=== PATIENT | male | born 1950 | race Caucasian/White ===

== ENCOUNTER → 2019-02-19 | Outpatient (CLI) | payer OTHER ==
[~2019-02-19] MED LIST: ALLOPURINOL300 MG PO; GEMFIBROZIL600 MG PO; LIPITOR20 MG PO
[2019-02-19 11:10] LABS: BASO % 0.4 % (0.0-1.0); EOS # 0.3 10*3/uL (0.0-0.4); EOS % 4.1 % (1.0-4.0); HEMOGLOBIN 14.3 g/dl (14.0-18.0); LYMPH # 2.5 10*3/uL (1.3-4.4); LYMPH % 29.6 % (27.0-41.0); MEAN CELL VOLUME 91.8 fl (80.0-94.0); MEAN CORPUSCULAR HGB 29.2 pg (27.0-31.0); MEAN CORPUSCULAR HGB CONC 31.8 g/dl (33.0-37.0); MEAN PLATELET VOLUME 9.7 fl (9.6-12.3); MONO # 0.5 10*3/uL (0.1-1.0); MONO % 5.8 % (3.0-9.0); NEUT % 59.9 % (47.0-73.0); PLATELET COUNT AUTOMATED 204 10*3/uL (130-400); RED CELL DISTRI WIDTH 13.5 % (0-14.5); WHITE BLOOD COUNT 8.4 10*3/uL (4.8-10.8)
[2019-02-19 11:41] LABS: ALBUMIN 3.9 gm/dl (3.1-4.5); BUN 12 mg/dl (7-24); CHLORIDE 106 mmol/L (98-107); SODIUM 139 mmol/L (136-145)
[2019-02-19 11:48] LABS: ALKALINE PHOSPHATASE 95 U/L (45-117); CHOLESTEROL 212 mg/dL (<200); FREE T4 1.01 ng/dl (0.76-1.46); HDL CHOLESTEROL 49 mg/dl (40-60); LDL CHOLESTEROL 103 mg/dL (9-159); SGOT/AST 17 IU/L (3-35); SGPT/ALT 30 U/L (12-78); TOTAL PROTEIN 7.3 gm/dL (6.4-8.2); TRIGLYCERIDES 298 mg/dl (<150); VLDL CHOLESTEROL 60 mg/dL (6-40)
[2019-02-19 12:11] LABS: VITAMIN D, 25-HYDROXY 40.5 ng/mL (30-100)
== END | disposition home or self-care (01) ==
LOC: LAB 10:47
PROVIDERS: Internal Medicine
DX: Z13.21 Encounter for screening for nutritional disorder (principal); M19.012 Primary osteoarthritis, left shoulder; Z13.1 Encounter for screening for diabetes mellitus; E55.9 Vitamin D deficiency, unspecified; E78.2 Mixed hyperlipidemia

== ENCOUNTER 2019-08-19 10:55 | Inpatient (IN) | payer MEDICARE ==
[~2019-08-19] VITALS: Ht 165.1 cm; Wt 79.2 kg
--- NOTE | 2019-08-19 11:33 | NUR ---
[facility] , under the services of JADIEL Bates MD with a diagnosis of RESP. FAILURE. Chief complaint is SOB. Patient arrived via wheel chair from ID. Monitor applied. Initial assessment completed. Vital signs taken and recorded. JADIEL BATES MD notified of admission to the unit. Orders received. See assessment for past medical history, medications and allergies. Patient and/or family oriented to unit. [facility] visitation policy reviewed. Clothing/patient valuable form completed. DEANNA HOWARD
[2019-08-19 12:00] VITALS: BP 131/71
[2019-08-19 12:07] LABS: BASO % 0.6 % (0.0-1.0); EOS # 0.1 10*3/uL (0.0-0.4); HEMATOCRIT 44.2 % (42.0-52.0); HEMOGLOBIN 14.3 g/dl (14.0-18.0); LYMPH # 1.7 10*3/uL (1.3-4.4); LYMPH % 23.7 % (27.0-41.0); MEAN CELL VOLUME 91.5 fl (80.0-94.0); MEAN CORPUSCULAR HGB 29.6 pg (27.0-31.0); MEAN CORPUSCULAR HGB CONC 32.4 g/dl (33.0-37.0); MEAN PLATELET VOLUME 9.7 fl (9.6-12.3); MONO # 0.8 10*3/uL (0.1-1.0); NEUT # 4.4 10*3/uL (2.3-7.9); NEUT % 62.4 % (47.0-73.0); PLATELET COUNT AUTOMATED 185 10*3/uL (130-400); RED BLOOD COUNT 4.83 10*6/uL (4.50-5.90); RED CELL DISTRI WIDTH 13.3 % (0-14.5)
[2019-08-19 12:18] LABS: BUN 12 mg/dl (7-24); CHLORIDE 101 mmol/L (98-107); CREATININE 0.88 mg/dL (0.70-1.30); SODIUM 134 mmol/L (136-145)
[2019-08-19 16:00] VITALS: BP 124/62
--- NOTE | 2019-08-19 19:00 | NUR ---
ASSUMED CARE FOR THIS PT AT THIS TIME. NO C/O VOICED. BLOOD TINGED SPUTUM NOTED. CALL LIGHT IN REACH.
[2019-08-19 20:00] VITALS: BP 126/77
--- NOTE | 2019-08-19 22:52 | NUR ---
24 HR chart check completed.
[2019-08-20] VITALS: BP 112/66
--- NOTE | 2019-08-20 07:38 | NUR ---
24 HR chart check completed.
[2019-08-20 08:00] VITALS: BP 120/70; BP 132/73
--- NOTE | 2019-08-20 08:00 | NUR ---
Patient resting quietly with no c/o discomfort. Respirations easy and regular. Vital signs stable. No overt distress. RASHARD QUIROZ
--- NOTE | 2019-08-20 11:06 | NUR ---
Ophthalmologist Retina Specialist in to talk to patient. Patient states lives at home with his and granddaughter. There are basement steps in the home. Physician: Dr. Teena Petersen Pharmacy: [facility] in [place] Home health services: none Patient's level of ADLs: INDEPENDENT Patient has working utilities: yes DME: none Follow-up physician's appointment after d/c: he prefers to make his own follow up appt after discharge Does patient want to access PORTAL?: no Discharge plan discussed with patient. He lives at home with his and granddaughter. He is independent in his ADLs and ambulation. Discussed home health care services and he denies any home needs at this time. When medically stable he will be discharged to home. He states his will provide transportation on discharge. KEKE FLEMING
[2019-08-20 12:00] VITALS: BP 142/66
[2019-08-20 16:00] VITALS: BP 152/68
[2019-08-20 20:00] VITALS: BP 136/69
--- NOTE | 2019-08-20 20:18 | NUR ---
RESTING IN BED WITH HOB ELEVATED. ALERT AND PLEASANT. HEP LOCK INTACT. NO DISTRESS NOTED. SPUTUM CONT AT BEDSIDE.
[2019-08-21] VITALS: BP 130/75
--- NOTE | 2019-08-21 00:19 | NUR ---
RESTING IN BED WITH EYES CLOSED. 02 INTACT. PULSE OX 90-93% ON 2L. MOIST COUGH CONT.
--- NOTE | 2019-08-21 06:11 | NUR ---
SLEPT WELL THIS SHIFT. NO DISTRESS NOTED. CONDITION GUARDED.
[2019-08-21 08:00] VITALS: BP 148/84
--- NOTE | 2019-08-21 08:00 | NUR ---
Patient resting quietly with no c/o discomfort. Respirations easy and regular. Vital signs stable. No overt distress. RASHARD QUIROZ
--- NOTE | 2019-08-21 08:29 | NUR ---
DR PEÑA NOTIFIED OF CONSULT. POSSIBLE BRONCH IN AM.
--- NOTE | 2019-08-21 08:30 | NUR ---
[place] Pilot in to see patient. No new needs or request at this time. He denies any home needs. When medically stable he will be discharged to home.
[2019-08-21 12:00] VITALS: BP 133/74
[2019-08-21 16:00] VITALS: BP 124/88
--- NOTE | 2019-08-21 16:00 | NUR ---
Patient resting quietly with no c/o discomfort. Respirations easy and regular. Vital signs stable. No overt distress. RASHARD QUIROZ
[2019-08-21 20:00] VITALS: BP 152/74
[2019-08-22] VITALS: BP 136/78
--- NOTE | 2019-08-22 00:12 | NUR ---
PATIENT'S IV NOT WORKING. DISCONTINUED AND RESTARTED IN THE RIGHT HAND BY RN DEE JON. 22 GAUGE, HEP LOCKED, FLUSHED WITH NSS. PATIENT TOLERATED WELL.
[2019-08-22 06:58] LABS: BASO % 0.1 % (0.0-1.0); EOS # 0.2 10*3/uL (0.0-0.4); EOS % 1.7 % (1.0-4.0); HEMATOCRIT 44.6 % (42.0-52.0); HEMOGLOBIN 14.2 g/dl (14.0-18.0); LYMPH # 1.9 10*3/uL (1.3-4.4); LYMPH % 18.5 % (27.0-41.0); MEAN CELL VOLUME 92.9 fl (80.0-94.0); MEAN CORPUSCULAR HGB 29.6 pg (27.0-31.0); MEAN CORPUSCULAR HGB CONC 31.8 g/dl (33.0-37.0); MEAN PLATELET VOLUME 9.9 fl (9.6-12.3); MONO # 0.3 10*3/uL (0.1-1.0); MONO % 2.5 % (3.0-9.0); NEUT % 76.8 % (47.0-73.0); PLATELET COUNT AUTOMATED 251 10*3/uL (130-400); WHITE BLOOD COUNT 10.4 10*3/uL (4.8-10.8)
[2019-08-22 07:29] LABS: ALBUMIN 3.2 gm/dl (3.1-4.5); BUN 18 mg/dl (7-24); CHLORIDE 107 mmol/L (98-107); CREATININE 0.93 mg/dL (0.70-1.30); POTASSIUM 4.5 mmol/L (3.5-5.1); SGOT/AST 16 IU/L (3-35); SODIUM 139 mmol/L (136-145)
[2019-08-22 07:37] LABS: ALKALINE PHOSPHATASE 67 U/L (45-117); SGPT/ALT 30 U/L (12-78); TOTAL PROTEIN 6.8 gm/dL (6.4-8.2)
[2019-08-22 08:00] VITALS: BP 140/62
--- NOTE | 2019-08-22 10:04 | NUR ---
PT GIVEN SUPPLIES FOR SHOWER. HEART MONITOR REMOVED PER DR RIZO ORDERS AND DR RIZO GIVES OKAY FOR PT TO TAKE A SHOWER.
[2019-08-22 12:00] VITALS: BP 140/74
--- NOTE | 2019-08-22 12:00 | NUR ---
Hep Lock discontinued due to iv site becoming dislodged. Site asymptomatic. Pressure applied. Sterile dressing applied. AMADA KANG
--- NOTE | 2019-08-22 12:37 | NUR ---
Finance Vice President in to see patient. He is sitting up in his bedside chair without distress noted. Resps even and unlabored. No new needs or request. He denies any home needs. When medically stable he will be discharged to home.
[2019-08-22 14:09] LABS: ADENOVIRUS Negative (Negative); INFLUENZA A Negative (Negative); INFLUENZA B Negative (Negative); METAPNEUMOVIRUS Negative (Negative); PARAINFLUENZA 1 Negative (Negative); PARAINFLUENZA 2 Negative (Negative); PARAINFLUENZA 3 Negative (Negative); RHINOVIRUS Negative (Negative); RSV A Positive (Negative); RSV B Negative (Negative)
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
[2019-08-22 16:00] VITALS: BP 145/68
[2019-08-22 16:06] LABS: MYCOPLASMA PNEUMONIAE IGG 138 U/mL (0-99); MYCOPLASMA PNEUMONIAE IGM <770 U/mL (0-769)
--- NOTE | 2019-08-22 18:13 | NUR ---
IV started left antecubital with #22 protective cath after 1 attempts. Site prepped with Chloroprep. Sterile dressing applied. Patient tolerated procedure well. AMADA KANG
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
--- NOTE | 2019-08-22 19:30 | NUR ---
PT RESTING IN BED. VOICES NO CONCERNS AT THIS TIME. RESPS EASY AND NON LABORED. NO S/S OF DISTRESS NOTED. VSS. 3L OXYGEN INTACT. WHITE BOARD UPDATED. CALL LIGHT WITHIN REACH.
[2019-08-22 20:00] VITALS: BP 134/66
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
[2019-08-23] VITALS: BP 119/67
--- NOTE | 2019-08-23 00:59 | NUR ---
TUMS APPEAR EFFECTIVE. PT SLEEPING. RESPS EASY AND NON LABORED. NO S/S OF DISTRESS NOTED. CALL LIGHT WITHIN REACH
--- NOTE | 2019-08-23 01:58 | NUR ---
Patient resting quietly with no c/o discomfort. Respirations easy and regular. Vital signs stable. No overt distress. OXYGEN INTACT. CALL LIGHT WITHIN REACH HISSOM,JANA
--- NOTE | 2019-08-23 03:50 | NUR ---
24 HR chart check completed.
[2019-08-23 08:00] VITALS: BP 115/61
--- NOTE | 2019-08-23 08:39 | NUR ---
ASSESSMENT COMPLETE ON PT. RESPIRATIONS UNLABORED ON 2L NC. PT DENIES DISTRESS. MEDS TAKEN WITH EASE. PT SITTING UP IN CHAIR AT BEDSIDE. CALL LIGHT IN REACH.
[2019-08-23 12:00] VITALS: BP 120/68
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
[2019-08-23 16:00] VITALS: BP 135/79
--- NOTE | 2019-08-23 16:48 | NUR ---
PT UP WALKING THROUGHOUT HALLS. STATES THAT HE FEELS MUCH BETTER.
--- NOTE | 2019-08-23 19:30 | NUR ---
PT RESTING IN CHAIR. VOICES NO CONCERNS AT THIS TIME. RESPS EASY AND NON LABORED. NO S/S OF DISRESS NOTED. PT ON ROOM AIR. VSS. WHITE BOARD UPDATED. CALL LIGHT WITHIN REACH
[2019-08-23 20:00] VITALS: BP 145/72
[2019-08-24] VITALS: BP 104/55
--- NOTE | 2019-08-24 01:20 | NUR ---
24 HR chart check completed.
[2019-08-24 08:00] VITALS: BP 128/76
--- NOTE | 2019-08-24 08:00 | NUR ---
PATIENT AWAKE, ALERT AND ORIENTED SITTING UP IN BED. PT PLEASANT AND COOPERATIVE WITH CARE. SPEECH CLEAR AND APPROPRIATE. RESPIRATIONS ARE EASY AND REGULAR. COUGH NOTED ON ASSESSMENT. BED IN LOWEST LOCKED POSITION AND CALL LIGHT WITHIN REACH.
--- NOTE | 2019-08-24 10:00 | NUR ---
IN TO ROOM. PT SITTING UP IN CHAIR. NO STATED COMPLAINTS. DENIES PAIN. PLEASANT AND COOPERATIVE WITH CARE. SPEECH CLEAR AND APPROPRIATE. NO SOB NOTED AT REST ON ROOM AIR. CHAIR IN LOCKED POSITION AND CALL LIGHT WITHIN REACH.
[2019-08-24 12:00] VITALS: BP 128/70
[2019-08-24 16:00] VITALS: BP 148/78
[2019-08-24] MEDS ORDERED: ADV 500/50 PO (16:56)
[2019-08-24] MEDS ORDERED: MEDROL DOSEPAK4 MG PO (16:56)
[2019-08-24] MEDS ORDERED: METOPROLOL SUCC25 M2 PO (16:56)
--- NOTE | 2019-08-24 18:11 | NUR ---
Discharge instructions reviewed with patient/family. Patient receptive and verbalizes understanding. Follow-up care arranged. Written instructions given to patient/family. SHANNAN BLACKMAN
[2019-08-28 14:08] LABS: ADENOVIRUS Negative (Negative); INFLUENZA A Negative (Negative); INFLUENZA B Negative (Negative); METAPNEUMOVIRUS Negative (Negative); PARAINFLUENZA 1 Negative (Negative); PARAINFLUENZA 2 Negative (Negative); PARAINFLUENZA 3 Negative (Negative); RHINOVIRUS Negative (Negative); RSV A Positive (Negative); RSV B Negative (Negative)
== END 2019-08-24 18:11 | disposition home or self-care (01) | DRG 189 ==
LOC: 4E 10:55
PROVIDERS: Internal Medicine Critical Care Medicine; ADMIT Internal Medicine
DX: J96.01 Acute respiratory failure with hypoxia (principal); J44.1 Chronic obstructive pulmonary disease with (acute) exacerbation; J44.0 Chronic obstructive pulmonary disease with (acute) lower respiratory infection; J20.5 Acute bronchitis due to respiratory syncytial virus; J20.8 Acute bronchitis due to other specified organisms; E78.2 Mixed hyperlipidemia; K21.0 Gastro-esophageal reflux disease with esophagitis; I11.9 Hypertensive heart disease without heart failure; E66.9 Obesity, unspecified; E78.00 Pure hypercholesterolemia, unspecified; Z68.29 Body mass index [BMI] 29.0-29.9, adult; Z87.891 Personal history of nicotine dependence; B97.4 Respiratory syncytial virus as the cause of diseases classified elsewhere

== ENCOUNTER → 2023-07-26 | Outpatient (CLI) | payer MEDICARE ==
[~2023-07-26] MED LIST changes: +ADV 500/50 PO; +MEDROL DOSEPAK4 MG PO; +METOPROLOL SUCC25 M2 PO
== END | disposition home or self-care (01) ==
LOC: US 08:03
PROVIDERS: ATTEND Internal Medicine
DX: N28.9 Disorder of kidney and ureter, unspecified (principal)

== ENCOUNTER → 2023-11-05 | Outpatient (CLI) | payer MEDICARE | END | disposition home or self-care (01) | LOC: CARD 07:47 | PROVIDERS: ATTEND Internal Medicine | DX: I65.23 Occlusion and stenosis of bilateral carotid arteries (principal); I10 Essential (primary) hypertension ==

== ENCOUNTER → 2024-07-18 | Outpatient (CLI) | payer MEDICARE | END | disposition home or self-care (01) | LOC: US 00:47 | PROVIDERS: ATTEND Internal Medicine | DX: M79.604 Pain in right leg (principal); M79.605 Pain in left leg; L29.89 Other pruritus; R20.8 Other disturbances of skin sensation; R22.43 Localized swelling, mass and lump, lower limb, bilateral; Z87.891 Personal history of nicotine dependence ==